=== PATIENT | female | born 1985 | race Caucasian/White ===

== ENCOUNTER 2017-12-01 11:07 | Emergency (ER) | payer OTHER ==
[~2017-12-01] VITALS: Ht 160 cm; Wt 77.1 kg
[2017-12-01 11:11] VITALS: BP 115/73
--- NOTE | 2017-12-01 11:15 | NUR ---
PT AMBULATES TO BED 8
--- NOTE | 2017-12-01 11:20 | NUR ---
31 YO F BIB SELF W/ C/O COLD/FLU SYMTPOMS X 2 WEEKS. PT REPORTS COUGH, SORE THROAT, CONGESTION W/O RELIEF FROM MEDICATION, HAS NOT SEEN AN MD YET. NO S/S OF ACUTE RESPIRATORY DISTRESS. DENIES N/V/D/FEVER. AAOX4. LS CLEAR THROUGHOUT , BS ACTIVE X4 ABS SOFT NON TENDER, ER MD MADE AWARE. WILL CONTINUE TO MONITOR. PT POSITIONED FOR COMFORT HX LUPUS RX KASH
--- NOTE | 2017-12-01 12:07 | NUR ---
DR TORRES EVALUATING AT BEDSIDE
--- NOTE | 2017-12-01 12:25 | NUR ---
PT TO PT XRAY IN STABLE CONDITION , VIA W/C WITH LEAN PROCESS DEPLOYMENT CONSULTANT
[2017-12-01 13:02] VITALS: BP 125/68
--- NOTE | 2017-12-01 13:02 | NUR ---
Patient discharged with v/s stable. Written and verbal after care instructions given and explained. Patient alert, oriented and verbalized understanding of instructions. Ambulatory with steady gait. All questions addressed prior to discharge. ID band removed. Patient advised to follow up with PMD. Rx of MARIAA MONZON given. Patient educated on indication of medication including possible reaction and side effects. Opportunity to ask questions provided and answered.
== END 2017-12-01 13:02 | disposition home or self-care (01) ==
LOC: MED 11:07
DX: R07.89 Other chest pain (principal); R05 Cough; R06.02 Shortness of breath; Z88.1 Allergy status to other antibiotic agents
CPT/HCPCS: 71046; 99284; Q0092

== ENCOUNTER 2018-07-13 00:12 | Emergency (ER) | payer OTHER ==
[~2018-07-13] VITALS: Ht 160 cm; Wt 85.3 kg
[2018-07-13 00:14] VITALS: BP 113/78
--- NOTE | 2018-07-13 00:19 | NUR ---
AMBULATED TO ER BED 3
--- NOTE | 2018-07-13 00:48 | NUR ---
PT PRESENTS TO ED WITH C/O THROAT PAIN X 5 HOURS AFTER EATING SPICY FOOD. STATES SHE FEELS LIKE SHE HAS HEARTBURN WELL. PT DENIES ANY SOB. SPEAKING IN CLEAR SENTENCES WITHOUT DIFFICULTY. NO DISTRESS NOTED. PT PLACED INTO BED, PENDING MD WILSON. HX: LUPUS
[2018-07-13] MEDS ORDERED: DICYCLOMINE HCL LIQUID 20 MG, ALUMINUM HYD/MAG/SIMETHICONE 30 ML, LIDOCAINE VISCOUS 2% ... PO ONE ×3 (00:55)
[2018-07-13 01:54] VITALS: BP 113/78
--- NOTE | 2018-07-13 01:54 | NUR ---
Patient discharged with v/s stable. Written and verbal after care instructions given and explained. Patient verbalized understanding. Ambulatory with steady gait. All questions addressed prior to discharge. Advised to follow up with PMD.
== END 2018-07-13 01:54 | disposition home or self-care (01) ==
LOC: MED 00:12
DX: J02.9 Acute pharyngitis, unspecified (principal); R07.9 Chest pain, unspecified; R06.00 Dyspnea, unspecified; R11.10 Vomiting, unspecified; Z88.1 Allergy status to other antibiotic agents
CPT/HCPCS: 99283

== ENCOUNTER 2019-03-17 14:18 | Inpatient (IN) | payer OTHER ==
[~2019-03-17] VITALS: Ht 160 cm; Wt 90.7 kg
[2019-03-17 14:49] VITALS: BP 122/75
--- NOTE | 2019-03-17 14:53 | NUR ---
TRIAGE COMPLETE. VSS. RETURNED TO LOBBY TO WAIT FOR BED IN ED
--- NOTE | 2019-03-17 16:28 | NUR ---
Pt ambulated to bed 3.
--- NOTE | 2019-03-17 16:29 | NUR ---
33/F BIB SELF C/O COUGH, N/V, BODYACHES X 3 WEEKS. HX-VALLEY FEVER, LUPUS. PATIENT STATES PAIN OF 10/10 AT THIS TIME. PATIENT POSITIONED FOR COMFORT; HOB ELEVATED; BEDRAILS UP X1; BED DOWN. ER MD MADE AWARE OF PT STATUS.
--- NOTE | 2019-03-17 16:44 | NUR ---
Dr. Mac is evaluating the patient at bedside.
--- NOTE | 2019-03-17 17:03 | NUR ---
X RAY AT BEDSIDE.
--- NOTE | 2019-03-17 17:40 | NUR ---
PT CAN'T PROVIDE URINE AT THIS TIME.
[2019-03-17 17:51] LABS: BASOPHILS % (AUTO) 0.5 % (0.0-2.0); EOSINOPHILS # (AUTO) 0.3 K/uL (0-0.4); EOSINOPHILS % (AUTO) 3.7 % (0.0-4.0); HEMATOCRIT 39.9 % (36-48); HEMOGLOBIN 13.2 g/dL (12.0-16.0); LYMPHOCYTES # (AUTO) 2.5 K/uL (2.5-16.5); LYMPHOCYTES % (AUTO) 36.9 % (20.5-51.1); MEAN CORPUSCULAR HEMOGLOBIN 29 pg (27-31); MEAN CORPUSCULAR HGB CONC 33 g/dL (33-37); MEAN CORPUSCULAR VOLUME 86.3 fL (80-94); MONOCYTES # (AUTO) 0.7 K/uL (0.8-1.0); MONOCYTES % (AUTO) 9.7 % (1.7-9.3); NEUTROPHILS # (AUTO) 3.3 K/uL (1.8-7.7); NEUTROPHILS % (AUTO) 49.2 % (42.2-75.2); PLATELET COUNT (AUTO) 328 K/uL (140-450); RED BLOOD CELL COUNT(AUTO) 4.63 MIL/uL (4.20-5.40); RED CELL DISTRIBUTION WIDTH 14.3 % (11.6-13.7); WHITE BLOOD COUNT (AUTO) 6.8 K/uL (4.8-10.8)
--- NOTE | 2019-03-17 18:09 | NUR ---
URINE SPECIMEN SENT TO LAB.
[2019-03-17 18:18] LABS: APPEARANCE,URINE CLEAR (CLEAR); BILIRUBIN,URINE NEGATIVE (NEGATIVE); BLOOD, URINE NEGATIVE (NEGATIVE); COLOR,URINE YELLOW (YELLOW); LEUKOCYTE ESTERASE ,URINE NEGATIVE (NEGATIVE); NITRITE, URINE NEGATIVE (NEGATIVE); UGLUCOSE NEGATIVE (NEGATIVE)
[2019-03-17 18:25] LABS: ANION GAP 15.6 (8-16); CARBON DIOXIDE 24.2 mmol/L (21-32); CREATININE 0.9 mg/dL (0.6-1.3); POTASSIUM 3.8 mmol/L (3.5-5.1)
[2019-03-17 18:38] LABS: ALBUMIN 3.6 g/dL (3.4-5.0); TOTAL BILIRUBIN 0.3 mg/dL (0.0-1.0)
--- NOTE | 2019-03-17 19:13 | NUR ---
REPORT RECEIVED FROM ZULEMA PAUL. ASSUMED CARE AT THIS TIME.
--- NOTE | 2019-03-17 19:13 | NUR ---
Pt report given to RENETTA POOLE. Transfer of care at this time.
--- NOTE | 2019-03-17 19:30 | NUR ---
Patient will be admitted to care of Dr. Jay. Admited to [facility] . Will go to room 105b. Belongings list completed. Report to ZULEMA STREET. Transfer of care at this time.
--- NOTE | 2019-03-17 19:40 | NUR ---
RECEIVED PT FROM DAY SHIFT NURSE, PT CAME IN WHEELCHAIR AND ABLE TO AMBULATE TO [facility] [place] BED. NO SOB NOTED. BREATHING EVEN AND UNLABORED ON ROOM AIR. IV SITE ON LAC, 20G, PATENT, INTACT, ASYMPTOMATIC. SKIN INTACT, WARM AND DRY TO TOUCH. PT C/O PAIN, WILL ADMINISTER PAIN. MRSA SWAB DONE, VS CHECKED, WITHIN NORMAL RANGE. DX: VALLEY FEVER, ORIENT ROOM TO PT. SAFETY MEASURES IN PLACE. BED IN LOW POSITION AND CALL LIGHT WITHIN REACH. INSTRUCTED PT TO USE THE CALL LIGHT FOR ANY ASSISTANCE AND PT WAS AWARE.
[2019-03-17 19:45] VITALS: BP 122/68
[2019-03-17] MEDS ORDERED: POTASSIUM CHLORIDE 10 MEQ TABER PO PRN (20:20)
[2019-03-17] MEDS ORDERED: MAG SULF 2000 MG/WATER PREMIX 50 ML IV PRN (20:20)
[2019-03-17] MEDS ORDERED: ZOLPIDEM 5 MG TAB PO PRN (20:20)
[2019-03-17] MEDS ORDERED: FLUCONAZOLE 200 MG/NS PREMIX 100 ML IV SCH (20:20)
[2019-03-17] MEDS ORDERED: MAGNESIUM OXIDE 400 MG TAB PO PRN (20:20)
[2019-03-17] MEDS ORDERED: DOCUSATE SODIUM 250 MG GELCAP PO PRN (20:20)
[2019-03-17] MEDS: HYDROcodone/APAP 5/325 MG 1 TAB TAB PO PRN (20:52)
--- NOTE | 2019-03-17 20:52 | NUR ---
GIVEN DIFLUCAN MD ORDERED. PT C/O PAIN, COUGHING, NAUSEA. GIVEN NORCO, ROBITUSSIN, AND ZOFRAN MD ORDERED. PT TOLERATED WELL. WILL CONTINUE TO MONITOR.
[2019-03-17] MEDS: ONDANSETRON 4 MG/2 ML VIAL IVP PRN (20:53)
[2019-03-17] MEDS: guaiFENesin DM 200/20 MG-10 ML 10 ML UDC PO PRN (20:53)
--- NOTE | 2019-03-17 23:55 | NUR ---
PT SLEEPING IN BED. NO ACUTE DISTRESS NOTED.
[2019-03-18] VITALS: BP 99/63
--- NOTE | 2019-03-18 02:05 | NUR ---
PT SLEEPING IN BED. NO ACUTE DISTRESS NOTED. BED IN LOW POSITION, CALL LIGHT WITHIN REACH.
--- NOTE | 2019-03-18 03:59 | NUR ---
PT SLEEPING IN BED. NO ACUTE DISTRESS NOTED. BED IN LOW POSITION, CALL LIGHT WITHIN REACH.
[2019-03-18] MEDS: ONDANSETRON 4 MG/2 ML VIAL IVP PRN ×2 (05:26→17:05)
--- NOTE | 2019-03-18 05:26 | NUR ---
PT C/O NAUSEA, GIVEN ZOFRAN MD ORDERED. PT TOLERATED WELL.
[2019-03-18] MEDS: HYDROcodone/APAP 5/325 MG 1 TAB TAB PO PRN ×2 (05:48→10:27)
--- NOTE | 2019-03-18 05:48 | NUR ---
PT C/O COUGHING AND 6/10 PAIN, GIVEN ROBITUSSIN AND NORCO MD ORDERED. PT TOLERATED WELL.
[2019-03-18] MEDS: guaiFENesin DM 200/20 MG-10 ML 10 ML UDC PO PRN ×3 (05:49→20:01)
--- NOTE | 2019-03-18 06:48 | NUR ---
PT IN STABLE CONDITION, WILL ENDORSE PT TO DAY SHIFT NURSE.
[2019-03-18 06:52] LABS: BASOPHILS # (AUTO) 0.1 K/uL (0.00-0.22); BASOPHILS % (AUTO) 0.7 % (0.0-2.0); EOSINOPHILS # (AUTO) 0.2 K/uL (0-0.4); EOSINOPHILS % (AUTO) 3.4 % (0.0-4.0); HEMATOCRIT 40.3 % (36-48); HEMOGLOBIN 13.4 g/dL (12.0-16.0); LYMPHOCYTES # (AUTO) 2.6 K/uL (2.5-16.5); LYMPHOCYTES % (AUTO) 36.9 % (20.5-51.1); MEAN CORPUSCULAR HEMOGLOBIN 29 pg (27-31); MEAN CORPUSCULAR HGB CONC 33 g/dL (33-37); MONOCYTES # (AUTO) 0.7 K/uL (0.8-1.0); MONOCYTES % (AUTO) 9.6 % (1.7-9.3); NEUTROPHILS # (AUTO) 3.4 K/uL (1.8-7.7); NEUTROPHILS % (AUTO) 49.4 % (42.2-75.2); PLATELET COUNT (AUTO) 334 K/uL (140-450); RED BLOOD CELL COUNT(AUTO) 4.68 MIL/uL (4.20-5.40); RED CELL DISTRIBUTION WIDTH 14.4 % (11.6-13.7); WHITE BLOOD COUNT (AUTO) 6.9 K/uL (4.8-10.8)
--- NOTE | 2019-03-18 07:00 | NUR ---
Received report from PM nurse. Pt is asleep, bed on lowest position, call light within reach. Pt on room air, bilateral even, unlabored breathing, NS running at 10 mls/hr.
[2019-03-18 07:27] LABS: ALBUMIN 3.2 g/dL (3.4-5.0); ANION GAP 13.3 (8-16); CARBON DIOXIDE 26.7 mmol/L (21-32); CREATININE 0.9 mg/dL (0.6-1.3); TOTAL BILIRUBIN 0.4 mg/dL (0.0-1.0)
[2019-03-18 08:00] VITALS: BP 111/63
--- NOTE | 2019-03-18 08:38 | NUR ---
PATIENT HAS BEEN SCREENED AND CATEGORIZED HIGH NUTRITION RISK. PATIENT WILL BE SEEN WITHIN 1-2 DAYS OF ADMISSION. 03/18/19-03/19/[address]
--- NOTE | 2019-03-18 09:25 | NUR ---
DISCHARGE PLANNING: A 33 YEAR OLD PATIENT FROM HOME, WHO CAME IN DUE TO GENERALIZED WEAKNESS. PAST MEDICAL HISTORY OF VALLEY FEVER. INITIAL DIAGNOSIS OF VALLEY FEVER. CURRENT LABS INCLUDE 6.9, H/H 13.4/40.3, ALB 3.2. CXR NORMAL ON ADMISSION. ID CONSULT WITH DR. MCLEAN FOR VALLEY FEVER. URINE, BLOOD C/S PENDING. ON FLUCONAZOLE IV. DC PLAN PENDING TO HOME ONCE STABLE. Addendum: 03/20/19 at 1510 by Nereida Steel CM CURRENT LABS INCLUDE WBC 8.0, H/H 13.5/41.1. ID CONSULT IN PLACE. INFLUENZA A&B NEGATIVE. ON LEVOFLOXACIN. DC PLAN TO HOME ONCE STABLE. Addendum: 03/21/19 at 1417 by Nereida Steel CM CURRENT LABS INCLUDE WBC 8.0, H/H 13.5/41.1. URINE C/S SHOWED NO SIGNIFICANT GROWTH. ID CONSULT IN PLACE. STILL ON LEVOFLOXACIN. DC PLAN STILL PENDING ON PATIENT'S RESPONSE TO TREATMENT.
--- NOTE | 2019-03-18 09:31 | NUR ---
PT AWAKE AND TALKING TO MOM DOUG BY BEDSIDE. DENIED PAIN, SOB, AND NAUSEA. NO SIGNS OF DISTRESS NOTED. SAFETY MEASURES IN PLACE. BED IN LOW POSITION AND CALL LIGHT WITHIN REACH. INSTRUCTED PT TO USE THE CALL LIGHT FOR ANY ASSISTANCE AND PT WAS AWARE.
[2019-03-18] MEDS ORDERED: methylPREDNISolone SS 40 MG/ML VIAL IVP SCH (10:00)
[2019-03-18] MEDS: LEVOFLOXACIN 500 MG/D5W PREMIX 100 ML IV SCH (10:27)
--- NOTE | 2019-03-18 10:27 | NUR ---
ADMINISTERED SCHEDULED MEDS, MED EDUCATION PROVIDED TO PT, AND PT VERBALIZED UNDERSTANDING. PT COMPLAINED OF COUGH AND PAIN 6/10 BODY PAINS, MEDICATED WITH PRN COUGH SYRUP AND NORCO. MED EDUCATION PROVIDED, PT VERBALIZED UNDERSTANDING. PT RESTING ON BED, NO SIGNS OF DISTRESS, BED AT LOWEST POSITION, CALL LIGHT WITHIN REACH.
--- NOTE | 2019-03-18 11:05 | NUR ---
PT IS RESTING IN BED, PROVIDED WARM BLANKET, ON ROOM AIR AND NO SIGNS OF DISTRESS, LEVAQUIN IS RUNNING AT 100 MLS/HR, BED AT LOWEST POSITION, CALL LIGHT WITHIN REACH.
--- NOTE | 2019-03-18 11:31 | NUR ---
Patternmaker Plaster Note: Patient is a 33-year-old female admitted for valley fever. Patient has PMHX of Lupus. Patient was admitted from home. SW met with patient to verify demographics. Patient refused to complete assessment. SW will follow up as needed.
--- NOTE | 2019-03-18 13:35 | NUR ---
PT COMPLAINED OF NOT BEING ABLE TO TAKE PO NORCO BECAUSE IT HURTS WHEN SHE SWALLOWS, WANTED TO NOTIFY DOCTOR FOR AN IV FORM OF PAIN MEDS. NOTIFIED DR SERRATO OF PT'S CONCERN, HE WILL ORDER PRN MORPHINE IVP 2 MG Q4HRS. PT IS RESTING IN BED, INFORMED PT THAT DR SERRATO WAS AWARE, NO SIGNS OF DISTRESS, BED IN LOWEST POSITION, CALL LIGHT WITHIN REACH.
[2019-03-18] MEDS: ALBUTEROL SULFATE/IPRATROPIU 3 ML SOL IH SCH ×2 (13:56→19:00)
--- NOTE | 2019-03-18 14:17 | NUR ---
RECEIVED VERBAL ORDER FROM DR SERRATO; MORPHINE IVP 2MG/1ML Q4 PRN FOR SEVERE PAIN 7-10. REPEAT AND CONFIRM ORDER WITH DR. NAVAS INPUT ORDER.
[2019-03-18] MEDS ORDERED: MORPHINE SULFATE 2 MG/ML SYR IVP PRN ×2 (14:20)
--- NOTE | 2019-03-18 15:15 | NUR ---
PT IS AWAKE IN BED ON HER PHONE, NO SIGNS OF DISTRESS, ON RA, BED IN LOWEST POSITION, CALL LIGHT WITHIN REACH.
[2019-03-18 16:00] VITALS: BP 114/76
--- NOTE | 2019-03-18 17:05 | NUR ---
PT COMPLAINED OF NAUSEA AND ASKED FOR MEDS BEFORE SHE ATE. ADMINISTERED PRN ZOFRAN, PT'S FRIEND BROUGHT HER FOOD TO EAT WITH HER AT BEDSIDE, PT IS SITTING UP RIGHT IN BED, NO SIGNS OF DISTRESS, BED IN LOWEST POSITION, AND CALL LIGHT WITHIN REACH.
--- NOTE | 2019-03-18 18:18 | NUR ---
PT COMPLAINED OF 8/10 ACHING, BODY PAINS. PRN MORPHINE ADMINISTERED. PT IS RESTING IN BED, AT LOWEST POSITION, CALL LIGHT WITHIN REACH, ON RA.
--- NOTE | 2019-03-18 19:00 | NUR ---
ENDORSED REPORT TO PM NURSE AT BEDSIDE. PT AWAKE, RESTING IN BED, NO SIGNS OF DISTRESS, PT IS IN STABLE CONDITION.
--- NOTE | 2019-03-18 20:16 | NUR ---
REFER TO CHARGE NURSE ABOUT ACTING BEHAVIOUR OF THE PT . PT IS SO DEMANDING ANG COMPLAINING A LOT . SHE REFUSED THE AMBIEN WHICH SHE REQUESTED WHILE AGO AND ROBITUSSIN . CADE INIGUEZ;LEENA THE PT. AND SHE DECIDED TO ADDRESS TO MOBILE NURSE . PT TOOK A LOT OF OWN PILLS BUT SHE REFUSED TO ELABORATE IT . CHARGE NURSE INFORMED .
--- NOTE | 2019-03-18 20:30 | NUR ---
CALL CIRCUIT WORKER TALKED THE PT. THE CALL CIRCUIT WORKER ELABORATE ABOUT THE PT'S REQUESTS ABOUT THE BENADRYL AND MORPHINE . PER CALL CIRCUIT WORKER SHE SAID THE PT DON'T LIKE AMBIEN OR RESTORIL . PT WANTS BENADRYL TIV 50MG INSTEAD.PT. ALSO REQUESTED THE INCREASE THE DOSAGE OF MORPHINE.- WILL REFER TO SCIENCE MANAGER WITH REGARDS THIS MATTER.
--- NOTE | 2019-03-18 20:40 | NUR ---
DR John MOJIAC CALL BACK , MADE T.O ORDER AND CARRIED OUT.
[2019-03-18] MEDS ORDERED: diphenhydrAMINE 50 MG/ML VIAL IVP SCH (21:00)
--- NOTE | 2019-03-18 21:00 | NUR ---
S/E BY DR MCLEAN . MADE NEW ORDERS AND CARRIED OUT . WILL CONT. TO MONITOR THE PT.
[2019-03-18] MEDS: MORPHINE SULFATE 4 MG/ML SYR IVP PRN (21:54)
--- NOTE | 2019-03-18 21:54 | NUR ---
WHILE DIFLUCAN TIV IS ON GOING . PT. C/O PAIN ON IV SITE - ADDRESS THE COMPLAIN TO CHARGE NURSE BECAUSE PT. REFUSED TO FURTHER ASSESSMENT TO IV SITE . CADE SEEN THE AND EXAMINED THE IV SITE SHE SLOW DOWN THE REGULATION OF DIFLUCAN - WILL CONT. TO MONITOR . INFORM PT IF THE PAIN RESIST LET ME KNOW - POSSIBLE FOR D/S THE OLD IV SITE AND FOR RE INSERTION OF NEW ONE. - INFORMED PT. Addendum: 03/19/19 at 0353 by Sharonda Dawson RN THE WORD D/S ON THE ABOVE NOTES IS TYPOGRAPHICALLY ERROR - D/C INSTEAD OF D/S. - MARIELENA
--- NOTE | 2019-03-18 22:00 | NUR ---
THE COLLECTION FOR NASAL SWAB FOR INFLUENZA TEST - PENDING , SINCE THE PT. REQUESTED REST AND SLEEP W/O INTERUPTION FOR A WHILE.
--- NOTE | 2019-03-19 | NUR ---
REFUSED V/S KIM SAID .
[2019-03-19] MEDS: ALBUTEROL SULFATE/IPRATROPIU 3 ML SOL IH SCH ×4 (01:00→18:49)
--- NOTE | 2019-03-19 01:29 | NUR ---
PT REFUSED TX AT THIS TIME. NO RESPIRATORY DISTRESS NOTED.
--- NOTE | 2019-03-19 04:00 | NUR ---
MADE ROUNDS , SLEEPING - CHEST RISE AND FALL EQUALLY - WILL CONT. TO MONITOR.
--- NOTE | 2019-03-19 07:28 | NUR ---
ENDORSED TO AM SHIFT FOR CONT. OF CARE.
--- NOTE | 2019-03-19 07:29 | NUR ---
RECEIVED REPORT FROM MOLDING ENGINEER NURSE JONATHON FOR CONTINUITY OF CARE. PT IN STABLE CONDITION. RESPIRATIONS EVEN AND UNLABORED, ROOM AIR. IV INTACT AND PATENT. SAFETY MEASURES IN PLACE. BED IN LOW POSITION. CALL LIGHT AT BEDSIDE. WILL CONTINUE TO MONITOR.
--- NOTE | 2019-03-19 07:31 | NUR ---
REFUSED BLOOD EXTRACTION FOR LAB. EXAM. CHARGE NURSE INFORMED . Addendum: 03/19/19 at 0740 by Sharonda Dawson RN INFORMED DR. CARIDAD JALLOH AM NOD AWARE ABOUT IT.
[2019-03-19 08:00] VITALS: BP 110/59
[2019-03-19] MEDS: OSELTAMIVIR PHOSPHATE 75 MG CAP PO SCH ×2 (08:29→20:24)
[2019-03-19] MEDS: MORPHINE SULFATE 4 MG/ML SYR IVP PRN ×3 (08:29→19:44)
--- NOTE | 2019-03-19 08:36 | NUR ---
GAVE ORDERED DUE MEDICATIONS AT THIS TIME. PT TOLERATED WELL. WILL CONTINUE TO MONITOR.
[2019-03-19] MEDS: ONDANSETRON 4 MG/2 ML VIAL IVP PRN ×2 (08:53→13:50)
--- NOTE | 2019-03-19 09:02 | NUR ---
GAVE PRN ZOFRAN AT THIS TIME. PT TOLERATED WELL. WILL CONTINUE TO MONITOR.
[2019-03-19] MEDS: LEVOFLOXACIN 500 MG/D5W PREMIX 100 ML IV SCH (10:19)
--- NOTE | 2019-03-19 10:21 | NUR ---
GAVE ORDERED DUE MEDICATIONS AT THIS TIME. PT TOLERATED WELL. WILL CONTINUE TO MONITOR.
--- NOTE | 2019-03-19 12:01 | NUR ---
NEW IV PLACED 22G LAC. PT TOLERATED WELL.
--- NOTE | 2019-03-19 13:50 | NUR ---
GAVE PRN MEDICATION ZOFRAN PER PT REQUEST. PT TOLERATED WELL.
[2019-03-19] MEDS: ALUMINUM HYD/MAG/SIMETHICONE 30 ML UDC PO PRN (14:40)
--- NOTE | 2019-03-19 14:40 | NUR ---
JAVON MATA DR., D.O. 10ML MAALOX Q6 PRN. GAVE ORDERED MEDICATION TO PT. PT TOLERATED WELL.
--- NOTE | 2019-03-19 14:46 | NUR ---
03/19/19 RD INITIAL ASSESSMENT COMPLETED PLEASE REFER TO NUTRITION ASSESSMENT UNDER CARE ACTIVITY FOR ESTIMATED NUTRITIONAL NEEDS. 1. CONTINUE REGULAR DIET TOLERATED 2. ENCOURAGE PO INTAKE 3. GENERAL HEALTHY EATING EDUCATION MATERIAL WAS PROVIDED TO PATIENT 4. RD TO FOLLOW-UP 2-3 DAYS, HIGH RISK SHANNON HANEY RD
[2019-03-19 16:00] VITALS: BP 106/64
--- NOTE | 2019-03-19 16:30 | NUR ---
PT SLEEPING AT THIS TIME. RESPIRATIONS EVEN AND UNLABORED. BED IN LOW POSITION. CALL LIGHT AT BEDSIDE. WILL CONTINUE TO MONITOR.
--- NOTE | 2019-03-19 17:55 | NUR ---
GAVE PRN PAIN MEDICATION AT THIS TIME. PT TOLERATED WELL. WILL CONTINUE TO MONITOR.
--- NOTE | 2019-03-19 18:55 | NUR ---
RECEIVED PT ON ROOM AIR WITH AN SP02 OF 95% AND CLEAR BREATH SOUNDS. NO RESPIRATORY DISTRESS NOTED AT THIS TIME; HR 89 AND RR 16. HHN TX GIVEN ORDERED WITH NO ADVERSE REACTION. WILL CONTINUE TO MONITOR PT.
--- NOTE | 2019-03-19 19:15 | NUR ---
GAVE REPORT TO DEBONE SUPERVISOR NURSE KISSHUGH FOR CONTINUITY OF CARE. PT IN STABLE CONDITION.
--- NOTE | 2019-03-19 19:23 | NUR ---
RECEIVED PATIENT FROM NURSE JALLOH IN STABLE CONDITION. [facility] PATIENT. NO C/O PAIN. NO S/SX ACUTE DISTRESS. RESPIRATIONS EVEN, UNLABORED. SKIN WARM, DRY, INTACT. IV SITE TO LEFT FOREARM PATENT/INTACT. CALL LIGHT WITHIN REACH. WILL CONTINUE TO MONITOR. Addendum: 03/19/19 at 1931 by Evelyn Cortes RN DISREGARD NOTE.
--- NOTE | 2019-03-19 19:27 | NUR ---
RECEIVED BEDSIDE REPORT FROM DAY SHIFT NURSE. PATIENT IS AWAKE, ALERT, AND COOPERATIVE. RESPIRATION EVEN UNLABORED ON ROOM AIR. NO DISTRESS NOTED. SKIN IS WARM AND DRY. IV SALINE LOCKED. PLAN OF CARE WAS DISCUSSED. ALL SAFETY MEASURES IN PLACE. BED IS AT LOW POSITION. CALL LIGHT WITHIN REACH AND VERBALIZES ITS USE. WILL CONTINUE TO MONITOR.
--- NOTE | 2019-03-19 19:53 | NUR ---
PATIENT COMPLAINED OF PAIN 11/16. PRN PAIN MED ADMINISTERED GIVEN PER ORDER. PATIENT START GETTING MAD AT ME FOR CHECKING HER VITALS AND TOLD ME THAT ITS UNNECESSARY. EDUCATED THE PURPOSE OF TAKING IT, CONTINUOUSLY GIVING ME AN ATTITUDE AND BEING RUDE TO ME. PATIENT ASKED FOR BENADRYL FOR SLEEPING PURPOSE. EDUCATED PATIENT REGARDING BENADRYL THAT IS NOT FOR SLEEPING PURPOSE. PATIENT CALLED ME A "BITCH AND TOLD ME THAT I WAS INCOMPETENT" WITH MY JOB. REPORTED TO CHARGE NURSE REGARDING PATIENT BEHAVIOR.
[2019-03-19] MEDS: diphenhydrAMINE 50 MG/ML VIAL IVP PRN (20:25)
--- NOTE | 2019-03-19 20:27 | NUR ---
PATIENT COMPLAINED OF ITCHINESS AND COUGH. PRN BENADRYL GIVEN AND COUGH MEDS PER ORDER. PATIENT COMPLAINING WHY DO I HAVE TO FLUSH HER IV SITE BEFORE GIVING THE MEDICATION. EXPLAINED THE PURPOSE OF FLUSHING IN BETWEEN MEDS. PATIENT STILL VERBALLY ABUSING ME BY CALLING ME "STUPID" THAT IT DOES NOT NEED TO BE FLUSH.
[2019-03-19] MEDS: guaiFENesin DM 200/20 MG-10 ML 10 ML UDC PO PRN (20:37)
--- NOTE | 2019-03-19 20:39 | NUR ---
PATIENT IS COMPLAINING THAT HER IV SITE IS BURNING. CHECKED IV SITE NO REDNESS OR SWELLING NOTED. OFFERED TO FLUSH IV SITE IT AGAIN. PATIENT SAID OKAY. WILL CONTINUE TO MONITOR.
--- NOTE | 2019-03-19 23:32 | NUR ---
VITALS WERE TAKEN. PATIENT IN STABLE CONDITION. NO DISTRESS NOTED. WILL CONTINUE TO MONITOR.
[2019-03-20] VITALS: BP 96/58
[2019-03-20] MEDS: ALBUTEROL SULFATE/IPRATROPIU 3 ML SOL IH SCH ×4 (01:05→19:56)
--- NOTE | 2019-03-20 01:05 | NUR ---
PT REFUSED HHN TX AT THIS TIME. NO RESPIRATORY DISTRESS NOTED. RN WAS NOTIFIED. WILL CONTINUE TO MONITOR PT.
--- NOTE | 2019-03-20 01:45 | NUR ---
PATIENT WOKE UP FROM PAIN STATING 10/10. PRN PAIN MED ADMINISTERED PER ORDER. WILL CONTINUE TO MONITOR.
[2019-03-20] MEDS: MORPHINE SULFATE 4 MG/ML SYR IVP PRN ×5 (01:46→20:24)
[2019-03-20] MEDS: ALUMINUM HYD/MAG/SIMETHICONE 30 ML UDC PO PRN ×2 (01:55→21:09)
[2019-03-20] MEDS: diphenhydrAMINE 50 MG/ML VIAL IVP PRN ×3 (01:56→20:25)
--- NOTE | 2019-03-20 01:56 | NUR ---
PATIENT COMPLAINED OF ITCHINESS. PRN BENADRYL GIVEN PER ORDER. PATIENT ASKED FOR CRACKERS. PROVIDED CRACKERS. WILL CONTINUE TO MONITOR.
--- NOTE | 2019-03-20 02:00 | NUR ---
PATIENT COMPLAINED OF HEARTBURN AND FEELING NAUSEOUS. PRN ANTI-EMETIC AND HEARTBURN GIVEN PER ORDER. WILL CONTINUE TO MONITOR.
[2019-03-20] MEDS: ONDANSETRON 4 MG/2 ML VIAL IVP PRN ×3 (02:05→21:09)
--- NOTE | 2019-03-20 03:37 | NUR ---
CHECKED PATIENT. PATIENT SLEEPING RESPIRATION EVEN UNLABORED ON ROOM AIR. NO DISTRESS NOTED. WILL CONTINUE TO MONITOR.
--- NOTE | 2019-03-20 04:37 | NUR ---
PATIENT REFUSED CARE FROM RETAIL BEAUTY SPECIALIST. PER RETAIL BEAUTY SPECIALIST PATIENT IS BEING DIFFICULT AND GIVING AN ATTITUDE WHEN CARE IS BEING PROVIDED.
--- NOTE | 2019-03-20 05:15 | NUR ---
PATIENT REFUSED BLOOD DRAWN. EDUCATED THE RISK AND BENEFITS X2 STILL REFUSED.
--- NOTE | 2019-03-20 07:09 | NUR ---
ENDORSED PATIENT TO DAY SHIFT NURSE. PATIENT IN STABLE CONDITION.
--- NOTE | 2019-03-20 07:10 | NUR ---
RECEIVED REPORT FROM SHORT STORY WRITER NURSE JEANETTE FOR CONTINUITY OF CARE. PT IN STABLE CONDITION. RESPIRATIONS EVEN AND UNLABORED, ROOM AIR. IV INTACT AND PATENT. SAFETY MEASURES IN PLACE. BED IN LOW POSITION. CALL LIGHT AT BEDSIDE. WILL CONTINUE TO MONITOR.
[2019-03-20 08:00] VITALS: BP 95/58
--- NOTE | 2019-03-20 09:50 | NUR ---
GAVE ORDERED DUE MEDICATIONS AT THIS TIME. PT TOLERATED WELL. WILL CONTINUE TO MONITOR.
[2019-03-20] MEDS: LEVOFLOXACIN 500 MG/D5W PREMIX 100 ML IV SCH (09:52)
[2019-03-20] MEDS: OSELTAMIVIR PHOSPHATE 75 MG CAP PO SCH ×2 (09:52→20:22)
--- NOTE | 2019-03-20 12:20 | NUR ---
NEW IV PLACED AT THIS TIME. OLD IV REMOVED NO INJURY TO SITE NOTED. BED IN LOW POSITION. PT TOLERATED WELL. CALL LIGHT AT BEDSIDE. WILL CONTINUE TO MONITOR.
[2019-03-20 12:38] LABS: BASOPHILS % (AUTO) 0.4 % (0.0-2.0); EOSINOPHILS # (AUTO) 0.1 K/uL (0-0.4); EOSINOPHILS % (AUTO) 0.7 % (0.0-4.0); HEMATOCRIT 41.1 % (36-48); HEMOGLOBIN 13.5 g/dL (12.0-16.0); LYMPHOCYTES # (AUTO) 2.4 K/uL (2.5-16.5); LYMPHOCYTES % (AUTO) 29.8 % (20.5-51.1); MEAN CORPUSCULAR HEMOGLOBIN 28 pg (27-31); MEAN CORPUSCULAR HGB CONC 33 g/dL (33-37); MEAN CORPUSCULAR VOLUME 86.3 fL (80-94); MONOCYTES # (AUTO) 0.6 K/uL (0.8-1.0); MONOCYTES % (AUTO) 6.9 % (1.7-9.3); NEUTROPHILS % (AUTO) 62.2 % (42.2-75.2); PLATELET COUNT (AUTO) 363 K/uL (140-450); RED BLOOD CELL COUNT(AUTO) 4.76 MIL/uL (4.20-5.40); RED CELL DISTRIBUTION WIDTH 14.6 % (11.6-13.7)
[2019-03-20 12:44] LABS: ANION GAP 11.1 (8-16); CARBON DIOXIDE 28.1 mmol/L (21-32); POTASSIUM 4.2 mmol/L (3.5-5.1)
[2019-03-20 12:50] LABS: ALBUMIN 3.5 g/dL (3.4-5.0); TOTAL BILIRUBIN 0.3 mg/dL (0.0-1.0)
--- NOTE | 2019-03-20 13:55 | NUR ---
GAVE PRN PAIN MEDICATION AT THIS TIME PER PT REQUEST. RESPIRATIONS EVEN AND UNLABORED. BED IN LOW POSITION. CALL LIGHT AT BEDSIDE. WILL CONTINUE TO MONITOR.
--- NOTE | 2019-03-20 15:30 | NUR ---
PT WATCHING TV AT THIS TIME. RESPIRATIONS EVEN AND UNLABORED. CALL LIGHT AT BEDSIDE. BED IN LOW POSITION. WILL CONTINUE TO MONITOR.
[2019-03-20 16:00] VITALS: BP 103/53
--- NOTE | 2019-03-20 17:43 | NUR ---
PT WATCHING TV AT THIS TIME. RESPIRATIONS EVEN AND UNLABORED. CALL LIGHT AT BEDSIDE. BED IN LOW POSITION. WILL CONTINUE TO MONITOR.
--- NOTE | 2019-03-20 19:23 | NUR ---
GAVE REPORT TO HOSPITAL AIDE NURSE CARLTON FOR CONTINUITY OF CARE. PT IN STABLE CONDITION.
--- NOTE | 2019-03-20 19:24 | NUR ---
RECEIVED BEDSIDE REPORT FROM AM SHIFT NURSE. PATIENT IS LYING WITH EYES CLOSED. NO SOB OR DISTRESS NOTED.IV ACCESS ON RIGHT FOREARM 24 GAUGE, SALINE LOCK. PATIENT IS AMBULATORY. SKIN IS INTACT. BED IN LOW, SAFETY MEASURES IN PLACE.CALL LIGHT WITHIN PATIENT REACH. WILL CONTINUE TO MONITOR PATIENT.
--- NOTE | 2019-03-20 21:04 | NUR ---
ROUNDS DONE. VISIBLE CHEST RISE AND FALL NOTED. WILL CONTINUE TO MONITOR PATIENT.
[2019-03-20] MEDS: ACETAMINOPHEN 325 MG TAB PO PRN (23:09)
--- NOTE | 2019-03-21 | NUR ---
PATIENT REFUSED VITAL SIGNS TAKING AT THIS TIME. PT WANTS TO SLEEP. NO DISTRESS NOTED. WILL CONTINUE TO MONITOR PATIENT.
[2019-03-21] MEDS: ALBUTEROL SULFATE/IPRATROPIU 3 ML SOL IH SCH ×4 (01:00→19:17)
--- NOTE | 2019-03-21 02:45 | NUR ---
ROUNDS DONE. VISIBLE CHEST RISE AND FALL NOTED. CALL LIGHT WITHIN PATIENT REACH. WILL CONTINUE TO MONITOR PATIENT.
[2019-03-21] MEDS: MORPHINE SULFATE 4 MG/ML SYR IVP PRN ×5 (04:29→22:11)
[2019-03-21] MEDS: ONDANSETRON 4 MG/2 ML VIAL IVP PRN ×3 (04:30→22:10)
[2019-03-21] MEDS: diphenhydrAMINE 50 MG/ML VIAL IVP PRN ×5 (04:31→22:10)
--- NOTE | 2019-03-21 06:33 | NUR ---
PATIENT IN STABLE CONDITION. CALL LIGHT WITHIN PATIENT REACH. WILL ENDORSE TO AM SHIFT NURSE FOR CONTINUITY OF CARE.
--- NOTE | 2019-03-21 06:50 | NUR ---
LAB NOTIFIED THAT PATIENT REFUSED BLOOD DRAW AT THIS TIME.
--- NOTE | 2019-03-21 07:30 | NUR ---
RECEIVED REPORT FROM NIGHT RN. PATIENT IS CURRENTLY RECEIVING BREATHING TX, NO DISTRESS NOTED. FULL CODE, ALLERGIES TO AMOXICILLIN. SKIN IS INTACT, ON ROOM AIR. AAOX4, AMBULATORY, REGULAR DIET. PATIENT HAS AN IV TO RIGHT FA 24G. WILL REVIEW AND CONTINUE WITH PLAN OF CARE FOR THE DAY.
[2019-03-21 08:00] VITALS: BP 103/56
[2019-03-21] MEDS: OSELTAMIVIR PHOSPHATE 75 MG CAP PO SCH ×2 (09:26→20:53)
[2019-03-21] MEDS: LEVOFLOXACIN 500 MG/D5W PREMIX 100 ML IV SCH (09:31)
--- NOTE | 2019-03-21 09:40 | NUR ---
ADMINISTERED MORNING MEDICATION WITH SECURITY AT BEDSIDE. PATIENT IS VERBALLY ABUSIVE, SECURITY OBSERVED. WILL INFORM CHARGE NURSE ZABRINA WHEN SHE IS BACK FROM BED HUDDLE. JOSE MADE AWARE
--- NOTE | 2019-03-21 12:20 | NUR ---
RECEIVED BEDSIDE REPORT FROM RADAMES POOLE FOR CONTINUITY OF CARE. PT AWAKE AND TALKING TO VISITOR BY BEDSIDE. PT IS AAOX4. DENIED PAIN, NAUSEA AND VOMITING AT THIS TIME. IV ON L HAND 24G, CLEAN AND INTACT, INFUSING ANTIBIOTIC PER MD ORDER AT THIS TIME. PT IS CONTINENT AND ABLE TO AMBULATE WITH STEADY GAIT. SAFETY MEASURES IN PLACE. BED IN LOW POSITION AND CALL LIGHT WITHIN REACH. INSTRUCTED PT TO USE THE CALL LIGHT FOR ANY ASSISTANCE AND PT WAS AWARE.
--- NOTE | 2019-03-21 12:30 | NUR ---
ENDORSED PATIENT TO YAMILA POOLE FOR CONTINUITY OF CARE. PATIENT IS STABLE UPON ENDORSEMENT, NO COMPLAINTS AT THIS TIME.
--- NOTE | 2019-03-21 13:45 | NUR ---
ANSWERED PT'S CALL LIGHT AND PT IS IN BREATHING TREATMENT AT THIS TIME. PT COMPLAINED SHE HAS 10/10 BODY ACHE AND ITCHING OVER HER BODY. SHE ALSO FEELS NAUSEA. ADMINISTERED PRN PAIN MED MORPHINE, BENADRYL, AND ZOFRAN, MEDS ED PROVIDED TO PT AND PT VERBALIZED UNDERSTANDING. PT AWAKE AND WATCHING TV ON BED AT THIS TIME. NO SIGNS OF DISTRESS NOTED. SAFETY MEASURES IN PLACE. INSTRUCTED PT TO USE THE CALL LIGHT FOR ANY ASSISTANCE AND PT WAS AWARE.
--- NOTE | 2019-03-21 13:54 | NUR ---
ANSWERED PT'S CALL LIGHT AND PT REQUESTS FOR A [employer] SORBET. CALLED FNS AND NO ANSWER. LEFT A BRIEF MESSAGE THAT PT IN 105B REQUEST A SORBET AND CALL BACK EXTENSION #.
--- NOTE | 2019-03-21 14:30 | NUR ---
ANSWERED PT'S CALL LIGHT. PER PT, SHE ACCIDENTALLY SPILLED THE FRUIT CUP ON HER GOWN AND REQUEST TO BE CHANGED. PROVIDED NEW GOWN AND ASSISTED PT TO CHANGE INTO NEW GOWN. NO SIGNS OF DISTRESS NOTED. SAFETY MEASURES IN PLACE. BED IN LOW POSITION AND CALL LIGHT WITHIN REACH. INSTRUCTED PT TO USE THE CALL LIGHT FOR ANY ASSISTANCE AND PT WAS AWARE.
--- NOTE | 2019-03-21 15:21 | NUR ---
PT AWAKE AND RESTING ON BED AT THIS TIME. STATED PAIN IS WITHIN HER TOLERABLE LIMIT, "IT'S LIKE A 2 NOW, BUT I AM FEELING OK.", DENIED NAUSEA, VOMITING, AND DIZZINESS. NO SIGNS OF DISTRESS NOTED. SAFETY MEASURES IN PLACE. BED IN LOW POSITION AND CALL LIGHT WITHIN REACH.
[2019-03-21 16:00] VITALS: BP 90/51
[2019-03-21] MEDS: ACETAMINOPHEN 325 MG TAB PO PRN (17:04)
[2019-03-21] MEDS: ALUMINUM HYD/MAG/SIMETHICONE 30 ML UDC PO PRN (17:05)
--- NOTE | 2019-03-21 17:05 | NUR ---
PT COMPLAINED OF 2/10 HEADACHE AND FEELING HEARTBURN, ADMINISTERED PRN TYLENOL AND MYLANTA, MEDS ED PROVIDED TO PT AND PT VERBALIZED UNDERSTANDING. PT AWAKE AND TALKING TO VISITOR AT BEDSIDE. NO SIGNS OF DISTRESS NOTED. SAFETY MEASURES IN PLACE. BED IN LOW POSITION AND CALL LIGHT WITHIN REACH. INSTRUCTED PT TO USE THE CALL LIGHT FOR ANY ASSISTANCE AND PT WAS AWARE.
--- NOTE | 2019-03-21 17:51 | NUR ---
ANSWERED PT'S CALL LIGHT. PT COMPLAINED SHE HAS 9/10 BODY ACHE AND ITCHING OVER HER BODY. ADMINISTERED PRN PAIN MED MORPHINE, MED ED PROVIDED TO PT AND PT VERBALIZED UNDERSTANDING. PT AWAKE AND WATCHING TV ON BED AT THIS TIME. NO SIGNS OF DISTRESS NOTED. SAFETY MEASURES IN PLACE. INSTRUCTED PT TO USE THE CALL LIGHT FOR ANY ASSISTANCE AND PT WAS AWARE.
--- NOTE | 2019-03-21 17:58 | NUR ---
ANSWERED PT'S CALL LIGHT. PT COMPLAINED THAT SHE IS ITCHING OVER HER BODY SHE SCRATCHING. ADMINISTERED PRN BENADRYL, MED ED PROVIDED TO PT AND PT VERBALIZED UNDERSTANDING. PT AWAKE AND LOOKING ON HER ON BED AT THIS TIME. NO SIGNS OF DISTRESS NOTED. SAFETY MEASURES IN PLACE. INSTRUCTED PT TO USE THE CALL LIGHT FOR ANY ASSISTANCE AND PT WAS AWARE.
--- NOTE | 2019-03-21 19:30 | NUR ---
RECEIVED BEDSIDE REPORT FROM AM SHIFT RN FOR PT'S CONTINUITY OF CARE. PT IS AAOX4, EATING DINNER WITH FAMILY AT BEDSIDE, DENIES ANY PAIN, IS ON ROOM AIR, HAS LEFT H 24G TKO. EXPLAINED TO PT THE [employer] ROUTINE, PT VERBALIZED UNDERSTANDING. BED IS ON LOW POSITION, SIDE RAILS ARE UP, AND CALL LIGHT IS WITHIN REACH. WILL MONITOR PT THROUGHOUT THE SHIFT.
--- NOTE | 2019-03-21 19:37 | NUR ---
ENDORSED PATIENT AT BEDSIDE TO FARM APPRAISER NURSE FOR CONTINUITY OF CARE. PT AWAKE AND EATING DINNER BROUGHT IN BY FRIEND. NO SIGNS OF DISTRESS NOTED. PT IS IN STABLE CONDITION. SAFETY MEASURES IN PLACE.
--- NOTE | 2019-03-21 22:10 | NUR ---
PT C/O GENERALIZED PAIN 8/10, NAUSEOUS FEELING, AND ITCHING. ADMINISTERED PRN IVP MEDICATIONS ORDERED. PT TOLERATED THEM WELL. C/O VEIN HURTS DURING IVP, ADMINISTERED IVP SLOWLY, PT TEACHING GIVEN RE: MEDICATIONS AND IV PUSH. PT VERBALIZED UNDERSTANDING, AND STATES VEIN DID NOT HURT MUCH. WILL CONTINUE TO MONITOR PT.
[2019-03-22] VITALS: BP 117/63
--- NOTE | 2019-03-22 00:30 | NUR ---
VS CHECKED AND CHARTED. RT AT BEDSIDE FOR BREATHING TX. PT REQUESTED AND PROVIDED WITH JEAN-PAUL LIGHT AND VAUGHN. PT MADE COMFORTABLE. WILL CONTINUE TO MONITOR PT.
[2019-03-22] MEDS: ALBUTEROL SULFATE/IPRATROPIU 3 ML SOL IH SCH ×3 (01:03→13:00)
--- NOTE | 2019-03-22 01:30 | NUR ---
PT CALLED FOR NURSE, REQUESTED TO GET PAIN MEDICATION AND BENADRYL WHEN IT'S DUE NEXT. INFORMED PT THAT I WILL COME BACK TO CHECK AND GIVE MEDICATION WHEN IT'S DUE.
--- NOTE | 2019-03-22 02:00 | NUR ---
MADE ROUNDS. PT ASLEEP WITH NO SIGNS OF DISTRESS. WILL CONTINUE TO MONITOR AND NOTATE IF PT NEEDS MEDICATION.
--- NOTE | 2019-03-22 02:30 | NUR ---
CHECKED PT'S ROOM AGAIN. PT LYING DOWN STILL ASLEEP. WILL CONTINUE TO MONITOR PT. MEDICATIONS NOT GIVEN.
--- NOTE | 2019-03-22 04:00 | NUR ---
MADE ROUNDS. PT LYING DOWN, APPEARS TO WAKE UP FOR A SHORT TIME, BUT WENT BACK TO SLEEP. DID NOT ASK FOR ANY MEDICATIONS OR NEEDS AT THIS TIME. WILL CONTINUE TO MONITOR PT.
--- NOTE | 2019-03-22 06:16 | NUR ---
MADE ROUNDS. PT ASLEEP WITH NO SIGNS OF DISTRESS OR DISCOMFORT. PT HAS BEEN ASLEEP ALL THROUGHOUT THE NIGHT. WILL ENDORSE TO AM SHIFT RN FOR PT'S CONTINUITY OF CARE.
[2019-03-22] MEDS ORDERED: LEVO750T2 PO (07:17)
[2019-03-22] MEDS ORDERED: TAM75 PO (07:17)
--- NOTE | 2019-03-22 07:35 | NUR ---
RECEIVED BEDSIDE REPORT FROM NIGHT NURSE. PATIENT IS ASLEEP, EASILY AROUSABLE. NO S/S OF DISTRESS NOTED. RESPIRATIONS EVEN AND UNLABORED. IV INTACT AND PATENT TO LEFT HAND. CALL LIGHT WITHIN REACH. SAFETY MEASURES IN PLACE. DR. JACQUES DISCUSSED DISCHARGE PLANS AT THIS TIME.
[2019-03-22 08:00] VITALS: BP 97/56
[2019-03-22] MEDS: OSELTAMIVIR PHOSPHATE 75 MG CAP PO SCH (08:28)
[2019-03-22] MEDS: ONDANSETRON 4 MG/2 ML VIAL IVP PRN (08:29)
[2019-03-22] MEDS: diphenhydrAMINE 50 MG/ML VIAL IVP PRN ×2 (08:30→12:22)
[2019-03-22] MEDS: MORPHINE SULFATE 4 MG/ML SYR IVP PRN ×2 (08:30→12:22)
--- NOTE | 2019-03-22 10:00 | NUR ---
DR. CARIDAD WOOD.
--- NOTE | 2019-03-22 10:10 | NUR ---
DR. MCLEAN CALLED BACK. PATIENT IS CLEARED TO BE DISCHARGED TODAY.
[2019-03-22] MEDS: LEVOFLOXACIN 500 MG/D5W PREMIX 100 ML IV SCH (10:30)
--- NOTE | 2019-03-22 11:39 | NUR ---
PT REMAINS STABLE. AWAKE, ALERT AND ORIENTED X4. PATIENT IS FOR DISCHARGED TODAY SCHEDULED.
--- NOTE | 2019-03-22 12:52 | NUR ---
DISCHARGE INSTRUCTIONS PACKET, PRESCRIPTION AND ALL BELONGINGS GIVEN TO PATIENT. PATIENT IS STABLE. ID BANDS AND IV CANNULA REMOVED. PATIENT IS GOING HOME WITH HER MOTHER VIA PRIVATE VEHICLE. PATIENT ABLE TO AMBULATE WITH STEADY GAIT.
--- NOTE | 2019-03-28 15:10 | NUR ---
PCP Appointment: VERONIKA contacted Aidee from Dr. Darrick Childs's office [phone]. VERONIKA arranged for hospital follow-up to be at 1430 on 03/31/2019 @ [id number] [facility] [address] [address]. Patient was notified. No further needs identified.
== END 2019-03-22 13:50 | disposition home or self-care (01) | DRG 113 ==
LOC: MED 14:18 → MTU 18:58
PROVIDERS: ADMIT Internal Medicine Pulmonary Disease; ATTEND Internal Medicine Pulmonary Disease
DX: J32.9 Chronic sinusitis, unspecified (principal); M32.9 Systemic lupus erythematosus, unspecified; R09.82 Postnasal drip; E66.9 Obesity, unspecified; Z88.0 Allergy status to penicillin; F41.9 Anxiety disorder, unspecified; Z68.35 Body mass index [BMI] 35.0-35.9, adult
CPT/HCPCS: 36415; 71045; 80053; 81003; 83605; 85025; 86038; 87040; 87081; 87086; 87804; 93005; 94640; 99285; J1200; J1450; J1956; J2270; J2405; J2920; J7030; J7620; Q0092

== ENCOUNTER 2019-09-15 22:46 | Emergency (ER) | payer OTHER ==
[~2019-09-15] VITALS: Ht 160 cm; Wt 91.2 kg
[~2019-09-15 22:46] MED LIST: LEVO750T2 PO; TAM75 PO
[2019-09-15 22:55] VITALS: BP 135/80
--- NOTE | 2019-09-15 22:55 | NUR ---
PT AMBULATED TO BED 2 W/ STEADY GAIT
[2019-09-15] MEDS ORDERED: SULFAMETH/TRIMETH DS 800/160MG 1 TAB PO ONE (23:15)
[2019-09-15] MEDS ORDERED: IBUPROFEN 800 MG TAB PO ONE (23:15)
[2019-09-15 23:33] VITALS: BP 123/81
--- NOTE | 2019-09-15 23:37 | NUR ---
Patient discharged with v/s stable. Written and verbal after care instructions given and explained. Patient verbalized understanding. Ambulatory with steady gait. All questions addressed prior to discharge. Advised to follow up with PMD. Prescription of bactrim, motrin, bactroban given. pt d/c
== END 2019-09-15 23:29 | disposition home or self-care (01) ==
LOC: MED 22:46
DX: L03.211 Cellulitis of face (principal); B38.0 Acute pulmonary coccidioidomycosis; F11.90 Opioid use, unspecified, uncomplicated; M32.9 Systemic lupus erythematosus, unspecified; Z88.1 Allergy status to other antibiotic agents; Z79.899 Other long term (current) drug therapy
CPT/HCPCS: 99283

== ENCOUNTER 2019-09-17 22:53 | Emergency (ER) | payer OTHER ==
[~2019-09-17] VITALS: Ht 160 cm; Wt 93.0 kg
[2019-09-17 23:18] VITALS: BP 134/83
[2019-09-18] MEDS ORDERED: DEXAMETHASONE 10 MG/ML VIAL ONE (00:05)
[2019-09-18] MEDS ORDERED: KETOROLAC 30 MG/ML VIAL IVP ONE (00:05)
[2019-09-18] MEDS ORDERED: DEXAMETHASONE 10 MG/ML VIAL IVP ONE (00:05)
[2019-09-18] MEDS ORDERED: LORazepam 2 MG/ML VIAL IVP ONE (00:05)
[2019-09-18] MEDS ORDERED: KETOROLAC 30 MG/ML VIAL ONE (00:06)
[2019-09-18] MEDS ORDERED: LORazepam 2 MG/ML VIAL ONE (00:07)
--- NOTE | 2019-09-18 00:18 | NUR ---
33 Y/O FEMALE PRESENTS TO ER WITH C/O FACIAL PAIN X 4 DAYS. PT STATES SHE JUST WOKE UP WITH 10/10 PAIN. PT STATES SHE HAS AN ABCESS INSIDE OF LEFT NOSTRIL, NO ABCESS VISUALIZED OR NOTED IN LEFT NOSTRIL. PT DESCRIBES PAIN BURNING AND STABBING. DENIES INJURY OR MEDICAL PROCEDURE TO FACE. DENIES N/V/D, COUGH, SOB, R/R EQUAL AND UNLABORED. VSS. LMP 09/10/19. SIDE RAIL X1 BED IN LOW POSITION, WILL CONTINUE TO MONITOR. NKDA DENIES PMH
--- NOTE | 2019-09-18 00:39 | NUR ---
PT TAKEN TO CT
--- NOTE | 2019-09-18 00:55 | NUR ---
PT RETURN FROM CT
[2019-09-18] MEDS ORDERED: LORazepam 2 MG/ML VIAL IVP STA (01:12)
[2019-09-18] MEDS ORDERED: KETOROLAC 30 MG/ML VIAL IVP STA (01:12)
[2019-09-18] MEDS ORDERED: DEXAMETHASONE 10 MG/ML VIAL IVP STA (01:12)
--- NOTE | 2019-09-18 01:20 | NUR ---
PT APPEARS TO BE SLEEPING IN BED, R/R EQUAL, AND UNLABORED, VSS. SIDE RAIL X1, BED IN LOW POSITION WILL CONTINUE TO MONITOR.
--- NOTE | 2019-09-18 02:27 | NUR ---
PT APPEARS TO BE SLEEPING IN BED, R/R EQUAL, AND UNLABORED, VSS. SIDE RAIL X1, BED IN LOW POSITION WILL CONTINUE TO MONITOR.
--- NOTE | 2019-09-18 03:55 | NUR ---
Patient discharged with v/s stable. Written and verbal after care instructions given and explained. Patient alert, oriented and verbalized understanding of instructions. Ambulatory with steady gait. All questions addressed prior to discharge. ID band removed. Patient advised to follow up with PMD. Rx of PREDNISONE, AUGMENTIN given. Patient educated on indication of medication including possible reaction and side effects. Opportunity to ask questions provided and answered.
[2019-09-18 04:01] VITALS: BP 134/83
== END 2019-09-18 03:55 | disposition home or self-care (01) ==
LOC: MED 22:53
DX: K13.0 Diseases of lips (principal); R60.9 Edema, unspecified; M32.9 Systemic lupus erythematosus, unspecified
CPT/HCPCS: 70488; 81025; 96374; 96375; 99284; J1100; J1885; J2060; Q9967

== ENCOUNTER 2021-12-24 03:04 | Emergency (ER) | payer OTHER ==
[~2021-12-24] VITALS: Ht 160 cm; Wt 90.7 kg
[~2021-12-24 03:04] MED LIST changes: +BACI1PAC6 TP; +NAPR-54 PO
[2021-12-24 03:13] VITALS: BP 117/78
--- NOTE | 2021-12-24 03:15 | NUR ---
pt to bed 4
--- NOTE | 2021-12-24 03:21 | NUR ---
Dr. Leal assessing patient. Patient sitting in bed, A/Ox4, chest rise and fall symmetrical, no s/s of distress.
[2021-12-24] MEDS ORDERED: HC/N10SU58 LEFT EAR (03:32)
[2021-12-24] MEDS ORDERED: CEFD300C3 PO (03:32)
[2021-12-24] MEDS ORDERED: ACETAMINOPHEN EXTRA STRENGTH 500 MG TAB PO ONE (03:35)
[2021-12-24 03:53] VITALS: BP 115/82
== END 2021-12-24 03:55 | disposition home or self-care (01) ==
LOC: MED 03:04
DX: H66.92 Otitis media, unspecified, left ear (principal); H60.92 Unspecified otitis externa, left ear; Z88.1 Allergy status to other antibiotic agents
CPT/HCPCS: 99282